=== PATIENT | male | born 2000 | race Caucasian/White ===

== ENCOUNTER 2022-12-12 23:22 | Emergency (ER) | payer OTHER ==
[~2022-12-12] VITALS: Ht 177.8 cm; Wt 80.4 kg
[2022-12-12 23:23] VITALS: BP 158/84
[2022-12-13] MEDS ORDERED: diazePAM 10MG/2ML SYRINGE IM ONE (00:35)
[2022-12-13] MEDS ORDERED: KETO10TAB PO (02:44)
[2022-12-13] MEDS ORDERED: TRAM50TA2 PO (02:44)
[2022-12-13] MEDS ORDERED: KETOROLAC TROMETHAMINE 10 MG TAB PO ONE (02:50)
== END 2022-12-13 03:07 | disposition home or self-care (01) ==
LOC: M ED 23:22
DX: S30.0XXA Contusion of lower back and pelvis, initial encounter (principal); W11.XXXA Fall on and from ladder, initial encounter; Y92.89 Other specified places as the place of occurrence of the external cause; Y93.89 Activity, other specified; Y99.8 Other external cause status
CPT/HCPCS: 72131; 96372; 99282; J3360